=== PATIENT | male | born 1960 | race Caucasian/White ===

== ENCOUNTER 2022-03-17 23:07 | Emergency (ER) | payer OTHER ==
[2022-03-17 23:13] VITALS: O2SAT 97
--- NOTE | 2022-03-17 23:21 | ERPHSYRPT ---
- History of Present Illness Time Seen by Provider: 03/17/22 23:18 Source: patient Exam Limitations: no limitations Physician History: Patient is a 61-year-old white male who stepped off of a step and landed on some smooth elmo and fell he rolled his ankle and he heard a very loud pop. This occurred 1 hour prior to his arrival. He complains of pain especially with weightbearing in the lateral aspect of the right ankle. He denies any other injury or pain Method of Injury: fell Occurred: just prior to arrival Quality: constant, throbbing Severity of Pain-Max: severe Severity of Pain-Current: moderate Lower Extremities Pain: ankle: right (Tenderness and swelling over the lateral malleolus) Modifying Factors: Improves With: movement Associated Symptoms: unable to bear weight, popping sensation Allergies/Adverse Reactions: amlodipine besylate [From Norvasc] Allergy (Verified 03/17/22 23:20) diltiazem HCl [From Cardizem] Allergy (Verified 03/17/22 23:20) simvastatin [From Zocor] Allergy (Verified 03/17/22 23:20) Home Medications: Aspirin 81 mg PO DAILY 07/18/14 [History] Fenofibrate,Micronized 145 mg* [Tricor 145 MG] 145 mg PO DAILY 07/18/14 [History] Hydrochlorothiazide 25 mg [hydroDIURIL 25 MG] 25 mg PO DAILY 07/18/14 [History] Potassium Bicarbonate/Cit AC [Potassium 25 Meq Tablet Eff] 25 meq PO DAILY 07/18/14 [History] Verapamil HCl [Verapamil ER] 120 mg PO DAILY 07/18/14 [History] Carvedilol [Coreg] 25 mg PO BID 03/17/22 [History] Hx Influenza Vaccination/Date Given: (fall 2012) Hx Pneumococcal Vaccination/Date Given: No - Review of Systems Constitutional: No Fever, No Chills Eyes: No Symptoms Ears, Nose, & Throat: No Symptoms Respiratory: No Cough, No Dyspnea Cardiac: No Chest Pain, No Edema, No Syncope Abdominal/Gastrointestinal: No Abdominal Pain, No Nausea, No Vomiting, No Diarrhea Genitourinary Symptoms: No Dysuria Musculoskeletal: Joint Pain, Joint Swelling, No Back Pain, No Neck Pain Skin: No Rash Neurological: No Dizziness, No Focal Weakness, No Sensory Changes Psychological: No Symptoms Endocrine: No Symptoms All Other Systems: Reviewed and Negative - Past Medical History Pertinent Past Medical History: Yes Neurological History: No Pertinent History ENT History: No Pertinent History Cardiac History: Arrhythmia, Other Respiratory History: COPD Endocrine Medical History: No Pertinent History Musculoskeletal History: No Pertinent History GI Medical History: Hernia, Polyps History: No Pertinent History Psycho-Social History: No Pertinent History Male Reproductive Disorders: Other Other Medical History: spouse states a-fib,tachycardia/had an ablation, states abd hernia for a long time,spouse states he has fluid in one testicle - Past Surgical History Past Surgical History: Yes Neuro Surgical History: No Pertinent History Cardiac: Other Respiratory: No Pertinent History Gastrointestinal: Appendectomy, Cholecystectomy Genitourinary: No Pertinent History Musculoskeletal: Other Male Surgical History: No Pertinent History Other Surgical History: left arm fx and graft taken from left hip for left arm, cardiac ablation , - Social History Smoking Status: Former smoker Exposure to second hand smoke: No Drug Use: none - Nursing Vital Signs Nursing Vital Signs: Initial Vital Signs Temperature 97.5 F 03/17/22 23:07 Pulse Rate 85 03/17/22 23:07 Respiratory Rate 18 03/17/22 23:07 Blood Pressure 162/96 03/17/22 23:07 O2 Sat by Pulse Oximetry 97 03/17/22 23:07 Pain Scale Pain Intensity 7 - Physical Exam General Appearance: mild distress, alert Eyes, Ears, Nose, Throat Exam: normal ENT inspection Neck Exam: normal inspection, non-tender, supple Cardiovascular/Respiratory Exam: no JVD, no respiratory distress Back Exam: normal inspection, normal range of motion, No vertebral tenderness Hips Exam: bilateral: non-tender, normal inspection, normal range of motion Legs Exam: bilateral leg: non-tender, normal inspection, normal range of motion Knees Exam: bilateral knee: non-tender, normal inspection, normal range of motion Ankle Exam: right ankle: non-tender, bone tenderness (Lateral malleolus), joint effusion, limited range of motion, pain, soft tissue tenderness, swelling Foot Exam: bilateral foot: non-tender, normal inspection, normal range of motion Neuro/Tendon Exam: normal sensation, normal motor functions Mental Status Exam: alert, oriented x 3, cooperative Skin Exam: normal color, warm, dry SpO2 Interpretation: normal SpO2: 97 O2 Delivery: Room Air Procedures - Splinting Time of Procedure: 23:48 Location of Splint: Right, Ankle Type of Splint: Air Cast Splint Applied By: ED Nurse Pre-Proc Neuro Vasc Exam: normal Post-Proc Neuro Vasc Exam: neurovascular intact - Course Nursing assessment & vital signs reviewed: Yes - Radiology Exams Right Ankle X-ray Interpretation: Interpreted by me, Negative Ordered Tests: Active Orders 24 hr Category Date Time Status ANKLE (3 VIEWS) Stat Exams 03/17/22 23:14 Taken - Progress Progress: unchanged - Departure Departure Disposition: Home Clinical Impression: Severe sprain of right ankle Condition: Stable Critical Care Time: No Referrals: SUMMER ATKINSON NP [Primary Care Provider] - Follow up/PCP as directed Instructions: Ankle Sprain (DC) Prescriptions: Hydrocodone/Acetaminophen [Hydrocodone-Acetamin 5-325 mg] 1 tab PO Q6HPRN PRN 3 Days #12 tablet MDD 4 PRN Reason: Pain
[2022-03-17] MEDS ORDERED: NORCO 5/325 MG PO ONE (23:52)
[2022-03-18] MEDS ORDERED: NORCO 5/325 MG ONE (00:04)
[2022-03-18 00:09] VITALS: BP 139/83; PULSE 75
--- NOTE | 2022-03-18 07:24 | XRAY ---
Indication: Pain following injury. Comparison: None 3 view right ankle obtained. No bony, articular, or soft tissue abnormalities.
== END 2022-03-18 00:23 | disposition home or self-care (01) ==
LOC: ED 23:07
DX: S93.401A Sprain of unspecified ligament of right ankle, initial encounter (principal); W10.9XXA Fall (on) (from) unspecified stairs and steps, initial encounter; M25.571 Pain in right ankle and joints of right foot; J44.9 Chronic obstructive pulmonary disease, unspecified; Z79.891 Long term (current) use of opiate analgesic; Z79.899 Other long term (current) drug therapy
CPT/HCPCS: 73610; 99284; A9270-GY